=== PATIENT | female | born 1990 | race Hispanic/Latino ===

== ENCOUNTER 2018-09-11 18:52 | Emergency (ER) | payer BC, OTHER ==
[2018-09-11 19:09] VITALS: BP 129/88; PULSE 83; RESP 14; TEMP 98; O2SAT 99
--- NOTE | 2018-09-11 20:16 | ED PDOC ---
HPI: Abdomen Time Seen by Provider: 09/11/18 20:01 Chief Complaint (Nursing): Abdominal Pain Chief Complaint (Provider): abd cramping History Per: Patient History/Exam Limitations: no limitations Onset/Duration Of Symptoms: Days (1) Current Symptoms Are (Timing): Still Present Location Of Pain/Discomfort: Suprapubic Quality Of Discomfort: Cramping, Burning Additional Complaint(s): 27 y/o female presents for evaluation of intermittent suprapubic abdominal cramping x 1 day. Associated dysuria, increased urine frequency. Patient states she had two + home tests, and has a history of left ectopic in 2016 with left salpingectomy so decided to come to ED for evaluation. Denies fever, nausea/vomiting, chest pain, shortness of breath, palpitations, back pain, vaginal bleeding/discharge, hematuria. Has not received care thus far Abnormal Vaginal Bleeding: No Last Menstral Period: 08/11/18 : 2 Para: 0 Miscarriage: 1 Past Medical History Reviewed: Historical Data, Nursing Documentation, Vital Signs Vital Signs: Last Vital Signs Temp 98 F 09/11/18 19:06 Pulse 83 09/11/18 19:06 Resp 14 09/11/18 19:06 BP 129/88 09/11/18 19:06 Pulse Ox 99 09/11/18 19:06 - Medical History PMH: No Chronic Diseases Denies: Chronic Kidney Disease - Surgical History Surgical History: Tonsillectomy Other surgeries: L salpingectomy - Family History Family History: States: Unknown Family Hx - Living Arrangements Living Arrangements: With Family - Home Medications Home Medications: Ambulatory Orders Medication Instructions Recorded Acetaminophen with Codeine 1 each PO Q4H PRN #30 tablet 06/15/16 [Tylenol with Codeine #3 Tablet] Ibuprofen [Motrin] 600 mg PO Q6H PRN #30 tab 06/15/16 Oxycodone HCl/Acetaminophen 1 tab PO Q6H PRN #5 tab 06/16/16 [Percocet 325 mg-5 mg] Nitrofurantoin Macrocrystals 100 mg PO BID #13 cap 09/11/18 [Macrobid] - Allergies Allergies/Adverse Reactions: Allergies Allergy/AdvReac Type Severity Reaction Status Date / Time Penicillins Allergy RASH Verified 09/11/18 19:04 shellfish derived Allergy ANGIOEDEMA Verified 09/11/18 19:05 Review of Systems ROS Statement: Except As Marked, All Systems Reviewed And Found Negative Genitourinary Female: Positive for: Dysuria, Frequency, Pelvic Pain Physical Exam - Reviewed Nursing Documentation Reviewed: Yes Vital Signs Reviewed: Yes - Physical Exam Appears: Positive for: Well, Non-toxic, No Acute Distress Head Exam: Positive for: ATRAUMATIC, NORMAL INSPECTION, NORMOCEPHALIC Skin: Positive for: Normal Color Eye Exam: Positive for: Normal appearance ENT: Positive for: Normal ENT Inspection Cardiovascular/Chest: Positive for: Regular Rate, Rhythm Respiratory: Positive for: Normal Breath Sounds Gastrointestinal/Abdominal: Positive for: Bowel Sounds, Soft, Tenderness (mild suprapubic discomfort) Back: Positive for: Normal Inspection Extremity: Positive for: Normal ROM Neurologic/Psych: Positive for: Alert, Oriented (x3) - Laboratory Results Result Diagrams: 09/11/18 20:25 09/11/18 20:25 - ECG O2 Sat by Pulse Oximetry: 99 - Progress ED Course And Treament: labs, urine, OB TV u/s USArad u/s impression: questionable early intrauterine gestation. thickened endometrium. right ovarian cyst. consider short term follow up study in 4-7 days if clinically warranted Patient educated on findings, discharged with rx Macrobid Advised 48 hour follow up Return to ED sooner for worsening/concerning symptoms Patient demonstrates full understanding of discharge instructions Patient requires no further intervention in the ED and is stable for discharge at this time Disposition - Clinical Impression Clinical Impression: UTI (urinary tract infection), Abdominal pain during , Ovarian cyst - Patient ED Disposition Is Patient to be Admitted: No Counseled Patient/Family Regarding: Studies Performed, Diagnosis, Need For Followup, Rx Given - Disposition [facility] Disposition: Routine/Home Disposition Time: 23:59 Condition: STABLE Additional Instructions: Follow up in 48 hours for re-evaluation Take medication as directed Return to ED for worsening/concerning symptoms Prescriptions: Nitrofurantoin Macrocrystals [Macrobid] 100 mg PO BID #13 cap Instructions: Urinary Tract Infections in Adults, Ovarian Cysts
[2018-09-11 20:27] LABS: SQUAMOUS EPITHIAL 1 /hpf (0-5); URINE BACTERIA RARE (<OCC); URINE BILIRUBIN NEGATIVE (NEGATIVE); URINE BLOOD NEGATIVE (NEGATIVE); URINE CLARITY SLIGHTY-CLOUDY (Clear); URINE COLOR YELLOW (YELLOW); URINE GLUCOSE (UA) NEG (Normal); URINE LEUKOCYTE ESTERASE TRACE Leu/uL (Negative); URINE PROTEIN NEGATIVE (NEGATIVE); URINE UROBILINOGEN 0.2-1.0 mg/dL (0.2-1.0)
[2018-09-11 20:32] LABS: BASO # 0.1 K/uL (0.0-0.2); BASO % 0.7 % (0.0-2.0); EOS # 0.2 K/uL (0.0-0.7); HEMOGLOBIN 12.9 g/dL (12.0-16.0); LYMPH # 2.3 K/uL (1.0-4.3); MEAN CELL VOLUME 85.4 fl (81.0-99.0); MEAN CORPUSCULAR HEMOGLOBIN 28.3 pg (27.0-31.0); MEAN CORPUSCULAR HGB CONC 33.1 g/dL (33.0-37.0); MEAN PLATELET VOLUME 8.8 fl (7.2-11.7); MONO # 0.8 K/uL (0.0-0.8); MONO % 7.6 % (0.0-10.0); NEUT # 7.5 K/uL (1.8-7.0); NEUT % 68.7 % (50.0-75.0); RBC 4.55 Mil/uL (3.80-5.20); RED CELL DISTRIBUTION WIDTH 12.9 % (11.5-14.5)
[2018-09-11 20:38] LABS: ALB/GLOB RATIO 1.2 (1.0-2.1); ALBUMIN 3.9 g/dL (3.5-5.0); ALT/SGPT 24 U/L (9-52); AST/SGOT 18 U/L (14-36); BLOOD UREA NITROGEN 14 mg/dl (7-17); CALCIUM 9.1 mg/dL (8.4-10.2); GFR NON-AFRICAN AMERICAN > 60
--- NOTE | 2018-09-12 11:46 | US ---
Date of service: 09/11/2018 HISTORY: preg, cramping; h/o L ectopic with L salpingectomy LMP 08/11/2018. Beta HCG results: 794.1 units. COMPARISON: None available. TECHNIQUE: Transvaginal only. Real -time technique with 2D, duplex and color Doppler FINDINGS: UTERUS: Measures 4 x 5.4 x 8.1 cm. Normal in size and appearance. No fibroid or other mass lesion seen. ENDOMETRIUM: Measures 12.7 mm in diameter. Possible gestational sac 2.1 mm. Out of range. Below threshold for calculation of reliable gestational age. CERVIX: No cervical abnormality identified.Incidental finding: Nabothian cysts the largest measures 9 mm. Closed cervix 3.65 cm. RIGHT OVARY: Measures 2.6 x 3.1 x 3.6 cm. No solid mass. Normal flow. Simple cyst 1.4 x 1.7 cm LEFT OVARY: Measures 1.4 x 1.7 x 1.9 cm. No solid mass. Normal flow. FREE FLUID: No significant free fluid noted. OTHER FINDINGS: None. IMPRESSION: Small saclike structure within the endometrial echo complex. Possible gestational sac. No yolk sac or pole identified. Concordant results (preliminary interpretation) provided by [facility]. Procedure Completed: 22:22 Preliminary Report: Dictated and Authenticated: 23:44 Final Interpretation: 11:43. September 12, 2018
== END 2018-09-12 00:05 | disposition home or self-care (01) ==
LOC: H.ER 18:52
DX: O23.40 Unspecified infection of urinary tract in pregnancy, unspecified trimester (principal); N83.201 Unspecified ovarian cyst, right side; Z88.0 Allergy status to penicillin

== ENCOUNTER 2018-09-13 07:46 | Emergency (ER) | payer OTHER ==
--- NOTE | 2018-09-13 08:18 | ED PDOC ---
HPI: Female Pain Time Seen by Provider: 09/13/18 07:59 Chief Complaint (Nursing): Medical Clearance Chief Complaint (Provider): check History Per: Patient History/Exam Limitations: no limitations Onset/Duration Of Symptoms: Days (today) Additional Complaint(s): Pt. is 4 wks preg. Here 2 days ago with cramps and had blood work and ultrasound done. Told to come back in 2 days to repeat the blood work. No pain, dyspnea, dysuria, weakness, bleeding, or any symptoms currently. Past Medical History Reviewed: Nursing Documentation, Vital Signs Vital Signs: Last Vital Signs Temp 98.4 F 09/13/18 07:51 Pulse 93 H 09/13/18 07:51 Resp 17 09/13/18 07:51 BP 131/87 09/13/18 07:51 Pulse Ox 98 09/13/18 07:51 - Medical History PMH: Denies: Chronic Kidney Disease Other PMH: ectopic - Surgical History Surgical History: Tonsillectomy - Family History Family History: States: Unknown Family Hx - Living Arrangements Living Arrangements: With Family - Home Medications Home Medications: Ambulatory Orders Medication Instructions Recorded Acetaminophen with Codeine 1 each PO Q4H PRN #30 tablet 06/15/16 [Tylenol with Codeine #3 Tablet] Ibuprofen [Motrin] 600 mg PO Q6H PRN #30 tab 06/15/16 Oxycodone HCl/Acetaminophen 1 tab PO Q6H PRN #5 tab 06/16/16 [Percocet 325 mg-5 mg] Nitrofurantoin Macrocrystals 100 mg PO BID #13 cap 09/11/18 [Macrobid] - Allergies Allergies/Adverse Reactions: Allergies Allergy/AdvReac Type Severity Reaction Status Date / Time Penicillins Allergy RASH Verified 09/11/18 19:04 shellfish derived Allergy ANGIOEDEMA Verified 09/11/18 19:05 Review of Systems ROS Statement: Except As Marked, All Systems Reviewed And Found Negative Physical Exam - Reviewed Nursing Documentation Reviewed: Yes Vital Signs Reviewed: Yes - Physical Exam Appears: Positive for: Non-toxic, No Acute Distress Head Exam: Positive for: ATRAUMATIC, NORMAL INSPECTION, NORMOCEPHALIC Skin: Positive for: Normal Color, Warm, DRY Cardiovascular/Chest: Positive for: Regular Rate, Rhythm Respiratory: Positive for: CNT, Normal Breath Sounds Gastrointestinal/Abdominal: Positive for: Normal Exam, Soft. Negative for: Tenderness Back: Positive for: Normal Inspection. Negative for: L CVA Tenderness, R CVA Tenderness Extremity: Positive for: Normal ROM. Negative for: Tenderness, Pedal Edema Neurologic/Psych: Positive for: Alert, Oriented - Laboratory Results Interpretation Of Abn Labs: 1791.8 - ECG O2 Sat by Pulse Oximetry: 98 Pulse Ox Interpretation: Normal - CT Scan/US US Other Rad Studies (CT/US): Read By Radiologist Other Rad Interpretation: possible IUP gestational sac - Progress ED Course And Treament: 1030: Stable. AAOx3. Fu with obgyn in 3 days. Need repeat US in 3 days. Bhcg is progressing. No pain. Disposition - Clinical Impression Clinical Impression: Threatened miscarriage - Patient ED Disposition Is Patient to be Admitted: No Counseled Patient/Family Regarding: Studies Performed, Diagnosis, Need For Followup - Disposition [facility] - 09/14/18 Disposition: Routine/Home Disposition Time: 10:00 Condition: STABLE Additional Instructions: Return if not better in 3 days. Instructions: Threatened Miscarriage Forms: [facility] ([place]), [facility] ED School/Work Excuse
--- NOTE | 2018-09-13 10:19 | US ---
Date of service: 09/13/2018 HISTORY: preg and pain COMPARISON: 09/11/2018. TECHNIQUE: Transvaginal pelvic ultrasound was performed. FINDINGS: UTERUS: Measures 8.5 x 5.5 x 4.7 cm. Anteverted, normal in size and appearance. No fibroid or other mass lesion seen. ENDOMETRIUM: There is a 3 mm round structure in the endometrial cavity. CERVIX: The cervix measures 4.1 cm. There are nabothian cysts. RIGHT OVARY: Measures 4.2 x 3.5 x 2.9 cm. No solid mass. Normal flow. There is a 1.6 x 2.1 x 1.5 cm simple cyst. LEFT OVARY: Measures 2.3 x 2.1 x 1.7 cm. No solid mass. Normal flow. FREE FLUID: No significant free fluid noted. OTHER FINDINGS: None. IMPRESSION: 3 mm round structure in the endometrial cavity is questionable gestational sac. It is too small and below the threshold for calculation of gestational age. No adnexal mass or free fluid in the pelvis.
[2018-09-13 11:42] VITALS: BP 126/70; PULSE 76; RESP 18; TEMP 97.8; O2SAT 100
== END 2018-09-13 11:41 | disposition home or self-care (01) ==
LOC: H.ER 07:46
DX: O20.0 Threatened abortion (principal); Z3A.01 Less than 8 weeks gestation of pregnancy; Z88.0 Allergy status to penicillin